=== PATIENT | male | born 1950 | race Caucasian/White ===

== ENCOUNTER → 2017-03-18 | Outpatient (CLI) | payer MEDICARE, OTHER ==
--- NOTE | ~2017-03-18 | CT137 ---
[facility] A Service of [facility] RADIOLOGY TEXT RESULTS PATIENT: VERNELL CLAYTON [facility] UN[facility] #: [id number] AGE: [address]: Ryan Mohan MD SEX: M ORDER DR: [id number] [facility]. [place], [place] [address] [id number] O MR#: [id number] [facility] #: [id number] NAME: VERNELL CLAYTON : 1950 SEX: M STUDY DATE/TIME: 03/18/2017 11:36 UNIT: [facility] ROOM: STUDY DESCRIPTION: CT Lung Screening annual Attending Physician: Ryan Mohan M.D. Referring Physician: Ryan Mohan M.D. Ordering Physician: Ryan Mohan M.D. Primary Care Physician: Ryan Mohan M.D. MEDICAL IMAGING REPORT This report is preliminary unless electronic signature is present EXAM CT scan of the chest without contrast lung cancer screening INDICATIONS 48 pack-year total smoking history. Current smoker. TECHNIQUE CT of the chest performed without contrast using the low-dose lung cancer screening protocol. Coronal and sagittal reformatted images were obtained. This CT exam was performed with one or more of the following radiation dose reduction techniques: automatic exposure control, adjustment of mA and/or kV according to patient size, and iterative reconstruction. CT dose index 3 mGy. COMPARISON No comparisons FINDINGS There are mild emphysematous changes. 6 mm ground-glass nodule right lower lobe on image 69. No suspicious lymphadenopathy. There is no pleural effusion. Limited imaging of the upper abdomen shows a probable tiny adrenal adenoma on the left. Bone windows are unremarkable. IMPRESSION 6 mm ground-glass nodule in the right lower lobe. ACR Lung-RADS category II. Followup annual low-dose lung cancer screening chest CT in 1 year. Dictated by... Ziyad Perez M.D. THIS IS AN ELECTRONICALLY VERIFIED REPORT Ziyad Perez M.D. at 03/20/2017 9:05 AM ARS/to [facility] A Service of [facility] RADIOLOGY TEXT RESULTS PATIENT: VERNELL CLAYTON [facility] UN[facility] #: [id number] AGE: [address]: Ryan Mohan MD SEX: M ORDER DR: TD: 03/18/2017 21:49 JOB #: [id number] MEDICAL IMAGING REPORT Page 1 of 1 COPY
== END | disposition home or self-care (01) ==
LOC: CCAT 11:19
DX: F17.210 Nicotine dependence, cigarettes, uncomplicated (principal)
CPT/HCPCS: G0297

== ENCOUNTER → 2017-04-19 | Outpatient (CLI) | payer MEDICARE, OTHER ==
--- NOTE | ~2017-04-19 | CT71 ---
[facility] A Service of [facility] RADIOLOGY TEXT RESULTS PATIENT: VERNELL CLAYTON LOCATION: [facility] : 50 UNIT #: [id number] AGE: [address]: Ryan Mohan MD SEX: M ORDER DR: [id number] [facility]. [place], [place] [address] [id number] O MR#: [id number] [facility] #: [id number] NAME: VERNELL CLAYTON : 1950 SEX: M STUDY DATE/TIME: 04/19/2017 14:12 UNIT: [facility] ROOM: STUDY DESCRIPTION: CT Head Wo Contrast Attending Physician: Ryan Mohan M.D. Referring Physician: Ryan Mohan M.D. Ordering Physician: Ryan Mohan M.D. Primary Care Physician: Ryan Mohan M.D. MEDICAL IMAGING REPORT This report is preliminary unless electronic signature is present EXAM CT head without contrast 04/19/2017 HISTORY 66-year-old male with frontal headaches and blurry vision and dizziness for 1 year. COMPARISON None. TECHNIQUE Routine unenhanced axial images performed through the brain. This CT exam was performed with one or more of the following radiation dose reduction techniques: automatic control, adjustment of mA and/or kV according to patient size, and iterative reconstruction. FINDINGS No hemorrhage, acute infarction, mass lesion, or abnormal extraaxial fluid collection. No midline shift or focal mass effect. Ventricular system normal in size and configuration. No acute bony abnormality. Visualized paranasal sinuses and mastoid air cells are clear. IMPRESSION No acute intracranial abnormality Dictated by... Garth Handy M.D. THIS IS AN ELECTRONICALLY VERIFIED REPORT Garth Handy M.D. at 04/20/2017 1:19 PM ELIZABETH/nestor TD: 04/19/2017 20:01 [facility] A Service of [facility] RADIOLOGY TEXT RESULTS PATIENT: VERNELL CLAYTON LOCATION: [facility] : 50 UNIT #: [id number] AGE: [address]: Ryan Mohan MD SEX: M ORDER DR: JOB #: [id number] MEDICAL IMAGING REPORT Page 1 of 1 COPY
== END | disposition home or self-care (01) ==
LOC: CCAT 14:20
DX: H81.13 Benign paroxysmal vertigo, bilateral (principal)
CPT/HCPCS: 70450